=== PATIENT | male | born 1975 | race Caucasian/White ===

== ENCOUNTER 2023-04-09 11:20 | Emergency (ER) | payer OTHER, SELFPAY ==
[2023-04-09 11:25] VITALS: BP 167/102
--- NOTE | 2023-04-09 12:02 | ED.GENMED ---
History of Present Illness
General
Chief Complaint: Chest Problem
Source: patient
Exam Limitations: none
Time Seen by Provider: 04/09/23 11:42
Travel History
Have you had any contact with someone who has COVID-19?: No
Do you have any symptoms of coronavirus? Fever > 100 degrees, chills, cough, shortness of breath, sore throat, loss of taste or smell, muscle aches, or headache?: No
History of Present Illness
History of Present Illness:
See MDM
Past History
Past History
ED Past Medical History: HTN
ED Past Surgical History: None
Social History
Tobacco: Former smoker
Alcohol: None
Phy Exam
Physical Exam
Physical Exam:
See MDM
Course
Orders/Labs/Results
Orders:
Orders
04/09/23 11:28
Electrocardiogram (*1) Urgent
Reason for Study: Chest Pain
EKG- Treatment ONCE
04/09/23 11:56
0.9% Sodium Chloride 1000 ml [Nss] 1,000 ml IV BOLUS
04/09/23 12:14
Complete Blood Count/With Diff Urgent
Comprehensive Metabolic Panel Urgent
TSH Reflex To Free T4 Urgent
Troponin I Urgent
Abnormal Lab Results
04/09/23
12:14
MPV 10.5 H fL
(7.4-10.4)
Immature Gran % 0.6 H %
(0-0.5)
ALT 71 H U/L
(0-50)
04/09/23 12:14
04/09/23 12:14
Vital Signs
Initial and Last Documented VS:
Initial Vital Signs
Temp Pulse Resp BP Pulse Ox
98.0 F 77 16 167/102 98
04/09/23 11:25 04/09/23 11:25 04/09/23 11:25 04/09/23 11:25 04/09/23 11:25
Last Documented Vital Signs
Temp Pulse Resp BP Pulse Ox
98.0 F 77 16 167/102 98
04/09/23 11:25 04/09/23 11:25 04/09/23 11:25 04/09/23 11:25 04/09/23 11:25
MDM/Problems Addressed
Differential Diagnosis Includes:
HPI and MDM Narrative:
47-year-old male presenting with general feeling of fatigue and foggy. Patient states he started to get dizzy when he walks. Patient is concerned this could be heart related. He has a strong family history of early cardiac and coronary
artery disease. He has a history of high blood pressure. He has never seen a actuarial intern.
Patient denies any chest pain or shortness of breath. He complains of intermittent palpitations which started last night.
Given his history, will obtain EKG and basic blood and troponin and discussed case with cardiology
Physical exam
General: Well appearing and non-toxic
HEENT: protecting airway. Mildly dry mucous membranes
Neck: appears supple
CV: No evidence of cyanosis. Regular rate and rhythm
Resp: No accessory muscle use. Lungs clear
Abd: Non-distended
Extremities: No deformities
Neuro: alert
Psych: Normal affect
Skin: Intact
Problems Addressed including Acute and Chronic Conditions affecting care:
1. Dizziness
Acuity: acute
Prognosis: stable
Details: Will obtain troponin with concern for ACS equivalent.
2. Palpitations
Acuity: acute
Prognosis: stable
Details: Obtain basic blood work and EKG
Updates
Troponin negative. Monitor continues to show normal sinus rhythm. No evidence of cardiac arrhythmia other than intermittent PVCs. Will place on cardiac callback check
Differential Diagnosis (but not limited to): ACS, dehydration, A-fib
Testing considered: D-dimer
Drug therapy (if applicable): OTC meds, please see d/c instruction regarding Rx drugs
Amount and/or Complexity of Data Reviewed
Clinical info obtained from: Patient
External data reviewed: N/A
Labs I independently reviewed (but not limited to): Troponin negative
Radiology: N/A
Pulse Ox: not hypoxic
EKG independently reviewed: sinus rhythm, normal axis, no STEMI
Lead Java [id number] Developer: Sinus rhythm
Critical Care: N/A
Risk of Complication:
Social Determinants of health: Good social support
Discussed with other providers: N/A
Escalation of Care includes Admit/Obs: After being observed in the Emergency Department, pt stable for discharge.
Occasional wrong word or 'sound a like' substitutions may have occurred due to the inherent limitations of voice recognition software. Read the chart carefully and recognize, using context, where substitutions have occurred.
*Critical Care Note
Total Time (30-74mins, 75-104mins- exclusive of procedures): Not Applicable
ED Attending Note
-
Portions of this chart may have been created with voice recognition software.� Occasional wrong word or��sound alike� substitutions may have occurred due to the inherent limitations of voice recognition software.
Discharge Plan
Departure
Patient Disposition: Home (Routine Discharge)
Date of Disposition: 04/09/23
Time of Disposition: 13:40
Patient with high blood pressure during this ER visit?: Yes
Discharge Problem:
Dizziness
Instructions: Chest Pain CBC Follow Up, BLOOD PRESSURE
Referrals:
Felipe Guidry DO [Family Provider] -
Timothy London MD [Active] -
Activity Restrictions/Additional Instructions:
Please return for any worsening symptoms.
You may return at any time if you have further concerns.
Please follow up with your doctor at the first available appointment, preferably this week.
You were placed on the cardiac callback tracker. Someone from their office should call you in the next few days. If you do not hear from them in the next few days, please give them a call.
Thank you for choosing [facility].
Interventions
Interventions:
*Risk Screen - Suicide Last Done: 04/09/23 12:16
*General Assessment Last Done: 04/09/23 12:16
*Neglect/Abuse Screening Last Done: 04/09/23 12:16
*ED COVID-19 Vaccine History Last Done: 04/09/23 11:25
ED- Cardiac Assessment Last Done: 04/09/23 12:16
ED- Pulmonary Assessment Last Done: 04/09/23 12:16
[2023-04-09] MEDS: NSS 1000 IV (12:09)
[2023-04-09 12:25] LABS: % Basophils 1.2 % (0-2); % Eosinophils 2.6 % (0-6); % Immature Granulocytes 0.6 % (0-0.5); % Lymphocytes 24.5 % (20.5-51.1); % Monocytes 7.2 % (1.7-9.3); % Neutrophils 63.9 % (42.2-75.2); Absolute Basophils 0.1 10^3/uL (0-0.2); Absolute Eosinophils 0.2 10^3/uL (0-0.7); Absolute Lymphocytes 1.6 10^3/uL (1.2-3.4); Absolute Monocytes 0.5 10^3/uL (0.1-0.6); Absolute Neutrophils 4.3 10^3/uL (1.4-6.5); Hematocrit 47.4 % (39.0-52.0); Hemoglobin 16.4 g/dL (13.0-18.0); Mean Corp Hgb Conc. 34.6 g/dL (33.0-37.0); Mean Corpuscular Hgb 29.1 pg (27.0-31.0); Mean Platelet Volume 10.5 fL (7.4-10.4); Nucleated Red Blood Cells % 0 % (-); Platelet Count 178 10^3/uL (130-400); Red Blood Cell Count 5.64 10^6/uL (4.70-6.10); Red Cell Dist. Width 12.4 % (11.5-14.5); White Blood Cell Count 6.7 10^3/uL (4.8-10.8)
[2023-04-09 12:41] LABS: ALT (SGPT) 71 U/L (0-50); AST (SGOT) 46 U/L (17-59); Albumin 4.3 g/dl (3.5-5.0); Alkaline Phosphatase 87 U/L (38-126); Blood Urea Nitrogen 17 mg/dl (9-20); Calcium 9.4 mg/dl (8.4-10.2); Carbon Dioxide 23 mmol/L (22-30); Chloride 106 mmol/L (98-107); Glucose 94 mg/dl (70-99); Potassium 4.2 mmol/L (3.5-5.1); Sodium 136 mmol/L (135-145); Total Protein 7.1 g/dl (6.3-8.2); eGFR > 60.00
[2023-04-09 12:52] LABS: Troponin I < 0.012 ng/ml
[2023-04-09 13:00] VITALS: BP 125/82
[2023-04-09 13:12] LABS: TSH Reflex To Free T4 3.76 uIU/ml (0.47-4.68)
== END 2023-04-09 13:57 | disposition home or self-care (01) ==
LOC: EMR 11:20
PROVIDERS: EMERGENCY PHYSICIAN Student in an Organized Health Care Education/Training Program; FAMILY PHYSICIAN Family Medicine
DX: R42 Dizziness and giddiness (principal); R00.2 Palpitations; R53.83 Other fatigue; I10 Essential (primary) hypertension; Z87.891 Personal history of nicotine dependence; Z88.0 Allergy status to penicillin; Z82.49 Family history of ischemic heart disease and other diseases of the circulatory system
CPT/HCPCS: 99284; 96360; 80053; 84443; 84484; 85025; 93005